=== PATIENT | male | born 1990 | race Caucasian/White ===

== ENCOUNTER 2017-10-22 17:15 | Emergency (ER) | payer OTHER ==
[~2017-10-22] VITALS: Ht 170.2 cm; Wt 86.9 kg
[2017-10-22] MEDS ORDERED: AZITHROMYCIN 250 MG TAB PO ONE (17:45)
[2017-10-22 17:52] VITALS: BP 143/88
== END 2017-10-22 18:00 | disposition home or self-care (01) ==
LOC: M ED 17:15
DX: Z20.2 Contact with and (suspected) exposure to infections with a predominantly sexual mode of transmission (principal)

== ENCOUNTER 2017-12-03 01:58 | Emergency (ER) | payer OTHER | END 2017-12-03 04:24 | disposition left against medical advice (07) | LOC: M ED 01:58 | DX: Z53.21 Procedure and treatment not carried out due to patient leaving prior to being seen by health care provider (principal) | CPT/HCPCS: 99281 ==

== ENCOUNTER 2018-09-20 07:39 | Emergency (ER) | payer OTHER ==
[2018-09-20] MEDS: KETOROLAC TROMETHAMINE 10 MG TAB PO (08:10)
== END 2018-09-20 09:41 | disposition home or self-care (01) ==
LOC: M ED 07:39
DX: M47.9 Spondylosis, unspecified (principal); M54.5 Low back pain; V43.52XA Car driver injured in collision with other type car in traffic accident, initial encounter
CPT/HCPCS: 71046

== ENCOUNTER 2019-01-11 21:03 | Emergency (ER) | payer OTHER ==
[~2019-01-11] VITALS: Ht 170.2 cm; Wt 86.4 kg
[~2019-01-11 21:03] MED LIST: AMBI10TA PO; KETO10TAB PO; LEXA1TAB2 PO; OMEP40CA2 PO; SILD50TA PO
[2019-01-11 21:04] VITALS: BP 156/100
[2019-01-11] MEDS ORDERED: ZONI50CA3 (21:14)
[2019-01-11] MEDS ORDERED: BACL10TA2 (21:14)
[2019-01-11] MEDS ORDERED: RIZA10TA4 (21:14)
[2019-01-11] MEDS ORDERED: VENL75CA47 (21:14)
== END 2019-01-12 00:58 | disposition left against medical advice (07) ==
LOC: M ED 21:03
DX: R29.6 Repeated falls (principal); Z53.21 Procedure and treatment not carried out due to patient leaving prior to being seen by health care provider

== ENCOUNTER → 2019-01-13 | Outpatient (CLI) | payer OTHER ==
[~2019-01-13] MED LIST changes: +BACL10TA2; +RIZA10TA4; +VENL75CA47; +ZONI50CA3
--- NOTE | 2019-01-13 12:00 | REP ---
MR BRAIN WITHOUT AND WITH CONTRAST: HISTORY: Tinnitus. CONTRAST: ProHance 17 mL. There are no areas of abnormal signal intensity in the brain. There is no intraparenchymal hemorrhage, infarct, mass, or midline shift. There is no abnormal enhancement. The ventricular system is normal in appearance. There is no extracerebral collection. There is no cerebellopontine angle mass. The inner ear structures are normal in appearance. The mastoid air cells and sinuses are clear. IMPRESSION: There is no intracranial lesion. Electronically Signed by Henry Camacho MD 01/13/2019 12:02 P
== END ==
LOC: M PLARAD 08:58
DX: H93.13 Tinnitus, bilateral (principal)

== ENCOUNTER 2022-11-26 11:40 | Emergency (ER) | payer MEDICARE, OTHER ==
[~2022-11-26] VITALS: Ht 170.2 cm; Wt 93.2 kg
[~2022-11-26 11:40] MED LIST changes: -OMEP40CA2 PO; +OMEP40CA4 PO; -RIZA10TA4; +RIZA10TA58; +ZONI50CA11; -ZONI50CA3
[2022-11-26] MEDS ORDERED: INVE156I IM (13:03)
[2022-11-26 13:44] LABS: BASO # 0.1 10^3/uL (0.0-0.2); BASO % 0.5 % (0.0-1.0); EOS # 0.1 10^3/uL (0.0-0.5); EOS % 0.5 % (0.0-3.0); HEMOGLOBIN 14.9 g/dl (13.5-17.5); LYMPH # 1.3 10^3/uL (1.5-5.0); LYMPH % 13.3 % (24.0-44.0); MEAN CORPUSCULAR HEMOGLOBIN 25.6 pg (27.0-33.0); MEAN CORPUSCULAR VOLUME 82.5 fl (80.0-96.0); MONO # 0.9 10^3/uL (0.0-0.8); MONO % 9.1 % (2.0-8.0); NEUTROPHILS # 7.6 10^3/uL (1.5-8.5); NEUTROPHILS % 76.1 % (36.0-66.0); PLATELET COUNT, AUTOMATED 301 10^3/uL (150-450); RED BLOOD COUNT 5.82 10^6/uL (4.30-6.10)
[2022-11-26] MEDS ORDERED: ISOVUE-370 76% 100ML VIAL As Ordered ONE (13:52)
[2022-11-26 14:18] LABS: ALBUMIN 4.4 G/DL (3.2-5.2); BILIRUBIN,DIRECT 0.1 MG/DL (<0.4); BILIRUBIN,TOTAL 0.4 MG/DL (0.3-1.2); TOTAL PROTEIN 7.6 G/DL (5.7-8.2)
[2022-11-26 16:01] VITALS: BP 134/87
== END 2022-11-26 16:05 | disposition home or self-care (01) ==
LOC: M ED 11:40 → EDBD 11:40 → M ED 16:05
DX: J38.3 Other diseases of vocal cords (principal); G43.909 Migraine, unspecified, not intractable, without status migrainosus; M54.9 Dorsalgia, unspecified; F17.200 Nicotine dependence, unspecified, uncomplicated; Z79.899 Other long term (current) drug therapy
CPT/HCPCS: 70491; 71045; 80047; 80076; 85025; 87486; 87581; 87633; 87798; 93005; 93041; 94760; 99285; Q9967